=== PATIENT | female | born 1940 | race Caucasian/White ===

== ENCOUNTER → 2016-08-08 | Outpatient (CLI) | payer OTHER ==
[~2016-08-08] MED LIST: ALBUTEROL2.5 MG/0.5; ASPIRIN EC81 M1 PO; CARVEDILOL6.25 MG PO; CLARITIN10 M2 PO; FLUTICASONE; ISOSORBIDE MONO60 M1 PO; LASIX20 MG PO; LEVOTHYROXINE75 MCG PO; LIPITOR PO; NITROGLYCERIN0.4 MG SL; PHENERGAN12.5 MG PO; PRINIVIL40 MG PO; PROTONIX PO; REMERON15 MG PO; TESSALON PERLE100 M1 PO; VENTOLIN HFA; ZOFRAN PO; ZOLPIDEM TARTRAT5 M1 PO
--- NOTE | ~2016-08-08 | BD1 ---
[facility] A Service of [facility] & [facility] RADIOLOGY TEXT RESULTS PATIENT: JUNIOR JEAN LOCATION: [facility] : 44 UNIT #: [id number] AGE: [address]: CHRISTIANE SHIRLEY SEX: F ORDER DR: [id number] [facility] [address] [place], [place] [address] [id number] O MR#: [id number] Acc #: [id number] NAME: JUNIOR JEAN : 1940 SEX: F STUDY DATE/TIME: 08/08/2016 14:35 UNIT: [facility] ROOM: STUDY DESCRIPTION: BD Dexa Bone Dens 1+ Site Attending Physician: Christiane Shirley M.D. Ordering Physician: Staff Doctor Not On Primary Care Physician: Christiane Shirley M.D. MEDICAL IMAGING REPORT This report is preliminary unless electronic signature is present EXAM DXA scan 08/08/2016 HISTORY Status post menopause with no hormone replacement therapy. Osteopenia. Hysterectomy at age 32. Family history of breast carcinoma in mother. Arthritis. Hyperthyroidism. Thyroid medication. Hypertension with blood pressure medication. Smoking history for 50 years. FINDINGS Bone mineral density in the lumbar spine from L1-L4 is 0.904 g/cm2 which is 1.3 standard deviations below the mean when compared to the young adult reference population which is characteristic of osteopenia. This is 1.1 standard deviations above the mean when compared to the age-matched population. Bone mineral density in the left femoral neck was 0.623 g/cm2 which is 2 standard deviations below the mean when compared to the young adult reference population which is characteristic of osteopenia. This is 0 standard deviations from the mean when compared to the age-matched population. IMPRESSION Bone mineral density in the lumbar spine and left hip characteristic of osteopenia. Dictated by... Haresh Mitchell M.D. THIS IS AN ELECTRONICALLY VERIFIED REPORT Haresh Mitchell M.D. at 08/09/2016 8:21 AM GODFREY/allyssa TD: 08/08/2016 16:21 JOB #: [id number] [facility] A Service of [facility] & [facility] RADIOLOGY TEXT RESULTS PATIENT: JUNIOR JEAN [id number] 44 UNIT #: [id number] AGE: [address]: CHRISTIANE SHIRLEY SEX: F ORDER DR: MEDICAL IMAGING REPORT Page 1 of 1 COPY
--- NOTE | ~2016-08-08 | MY11 ---
[facility] A Service of [facility] RADIOLOGY TEXT RESULTS PATIENT: JUNIOR JEAN LOCATION: [facility] : 44 UNIT #: [id number] AGE: [address]: CHRISTIANE SHIRLEY SEX: F ORDER DR: [id number] [facility] [address] [place], [place] [address] [id number] O MR#: [id number] Acc #: [id number] NAME: JUNIOR JEAN : 1940 SEX: F STUDY DATE/TIME: 08/08/2016 14:28 UNIT: [facility] ROOM: STUDY DESCRIPTION: MY Mammogram Screening Dig Kirk Attending Physician: Christiane Shirley M.D. Ordering Physician: Kalen Herrera Primary Care Physician: Christiane Shirley M.D. MEDICAL IMAGING REPORT This report is preliminary unless electronic signature is present EXAM Digital screening mammogram 08/08/2016, [facility] HISTORY 76-year-old woman positive family history, mother postmenopausal. Annual screen. COMPARISON 04/08/2013, 07/16/2015 FINDINGS Digital imaging of each breast was completed utilizing a two-view examination of each breast in craniocaudal and mediolateral-oblique projections. Review and interpretation of digital mammograms include a second review in conjunction with FDA-approved CAD device. There is a normal parenchymal presentation bilaterally consistent with the patient's age. There are no breast masses imaged and no parenchymal asymmetry is visualized. There are no suspicious microcalcifications and I see no focal architectural disturbance. IMPRESSION Negative screening digital mammogram. One-year followup recommended. Patients over the age of 40 are entered into a reminder system with target due date for the next mammogram. A result letter will also be sent to the patient. BIRADS: 1 Negative Dictated by... Timothy Meek M.D. [facility] A Service [facility] & [facility] RADIOLOGY TEXT RESULTS PATIENT: JUNIOR JEAN LOCATION: [facility] : 44 UNIT #: [id number] AGE: [address]: CHRISTIANE SHIRLEY SEX: F ORDER DR: THIS IS AN ELECTRONICALLY VERIFIED REPORT Timothy Meek M.D. at 08/09/2016 10:53 AM JBB/erum TD: 08/08/2016 16:14 JOB #: [id number] MEDICAL IMAGING REPORT Page 1 of 1 COPY
== END | disposition home or self-care (01) ==
LOC: CWCC 14:01
DX: Z13.820 Encounter for screening for osteoporosis (principal); Z12.31 Encounter for screening mammogram for malignant neoplasm of breast; M85.89 Other specified disorders of bone density and structure, multiple sites; N95.9 Unspecified menopausal and perimenopausal disorder; Z80.3 Family history of malignant neoplasm of breast; Z88.5 Allergy status to narcotic agent
CPT/HCPCS: 77080; G0202